=== PATIENT | female | born 1955 | race African-American/Black ===

== ENCOUNTER 2018-05-03 16:58 | Inpatient (IN) | payer MEDICARE, OTHER ==
[~2018-05-03] VITALS: Ht 170.2 cm; Wt 122.5 kg
[2018-05-03 17:59] LABS: BASOPHILS % 0.8 % (0.0-2.0); EOSINOPHILS % 1.2 % (0.0-5.0); HEMATOCRIT. 37.4 % (36.0-48.0); HEMOGLOBIN. 12.5 g/dL (12.0-16.0); LYMPHOCYTES % 20.8 % (20.0-50.0); MEAN CORPUSCULAR HEMOGLOBIN 27.4 pg (28.0-32.0); MEAN CORPUSCULAR VOLUME 82.3 fL (81.0-99.0); MEAN PLATELET VOLUME 9.8 fl (7.4-10.4); MONOCYTES % 5.9 % (2.0-8.0); NEUTROPHILS % 71.3 % (40.0-76.0); PLATELET 238 x1000/uL (130-400); RED BLOOD CELL COUNT 4.55 mill/uL (4.2-5.4); RED CELL DISTRIBUTION WIDTH 13.8 % (11.6-14.6)
[2018-05-03 18:04] LABS: CHLORIDE 104 mEq/L (98-107)
[2018-05-03 18:05] LABS: PARTIAL THROMBOPLASTIN TIME 24.9 sec (23.4-31.0); PROTHROMBIN TIME 10.5 sec (9.1-11.1)
[2018-05-03] MEDS ORDERED: ASPIRIN 325MG TABLET PO ONE (22:45)
[2018-05-03] MEDS ORDERED: NA PHOS,M-B/NA PHOS,DI-BA ENEMA 118ML PR PRN (23:00)
[2018-05-03] MEDS ORDERED: IPRATROPIUM/ALBUTEROL 0.5-3(2.5)MG/3ML NEB INH PRN (23:00)
[2018-05-03] MEDS ORDERED: NITROGLYCERIN 0.4MG TABLET SL SL PRN (23:00)
[2018-05-03] MEDS ORDERED: ZOLPIDEM TARTRATE 5MG TABLET PO PRN (23:00)
[2018-05-03] MEDS ORDERED: CLONIDINE 0.1MG TABLET PO PRN (23:00)
[2018-05-03] MEDS ORDERED: ACETAMINOPHEN 325MG TABLET PO PRN (23:00)
[2018-05-03] MEDS ORDERED: DOCUSATE SODIUM 100MG CAPSULE PO PRN (23:00)
[2018-05-03] MEDS ORDERED: MAGNESIUM/ALUMINUM HYDROXIDE/SIMETHICONE 30ML UDC PO PRN (23:00)
[2018-05-03] MEDS ORDERED: GUAIFENESIN 200MG/10ML SUGAR FREE UDC PO PRN (23:00)
[2018-05-03] MEDS ORDERED: LORAZEPAM 0.5MG TABLET PO PRN (23:00)
[2018-05-03] MEDS ORDERED: DIPHENHYDRAMINE 50MG/ML VIAL IV PRN (23:00)
[2018-05-03] MEDS ORDERED: ONDANSETRON 4MG ODT PO PRN (23:00)
[2018-05-04] VITALS (7 sets, daily range): BP systolic 105–145; BP diastolic 58–91
[2018-05-04 00:13] LABS: CLARITY URINE TURBID (CLEAR); COLOR URINE YELLOW (YELLOW); KETONES URINE NEGATIVE (NEGATIVE); LEUKOCYTE ESTERASE URINE 2+ (NEGATIVE); NITRITE URINE NEGATIVE (NEGATIVE); OCCULT BLOOD URINE 3+ (NEGATIVE); PROTEIN URINE 1+ (NEGATIVE); SPECIFIC GRAVITY URINE 1.012 (1.005-1.030); UROBILINOGEN URINE 0.2 E.U./dL (0.2-1.0)
[2018-05-04 00:36] LABS: *AMPHETAMINES SCREEN URINE NEGATIVE (NEGATIVE); *BARBITURATES SCREEN URINE NEGATIVE (NEGATIVE); *BENZODIAZEPINES SCREEN URINE PRESUMTIVE POSITIVE (NEGATIVE)
[2018-05-04 00:38] LABS: *COCAINE SCREEN URINE NEGATIVE (NEGATIVE); CANNABINOID URINE SCREEN PRESUMTIVE POSITIVE (NEGATIVE); METHADONE URINE SCREEN NEGATIVE (NEGATIVE); OPIATES URINE SCREEN NEGATIVE (NEGATIVE); PHENCYCLIDINE URINE SCREEN NEGATIVE (NEGATIVE)
[2018-05-04] MEDS ORDERED: HYDR-4009 PO (02:18)
[2018-05-04] MEDS ORDERED: AMOX125S8 PO (02:18)
[2018-05-04] MEDS ORDERED: DIAZ10TA4 PO (02:18)
[2018-05-04] MEDS ORDERED: AMLO5TAB88 PO (02:18)
[2018-05-04] MEDS ORDERED: CHOL50003 PO (02:18)
[2018-05-04] MEDS ORDERED: ATOR40TA70 PO (02:18)
[2018-05-04] MEDS ORDERED: ASPI-1159 PO (02:18)
[2018-05-04] MEDS ORDERED: FISH1CAP65 PO (02:18)
[2018-05-04] MEDS ORDERED: LORA10TA7 PO (02:18)
[2018-05-04 07:25] LABS: CREATINE KINASE 39 IU/L (26-192)
[2018-05-04 07:27] LABS: CREATINE KINASE MB FRACTION < 1.0 ng/mL (0.5-3.6)
[2018-05-04] MEDS: ASPIRIN 325MG EC TABLET PO SCH (09:05)
[2018-05-04] MEDS: FAMOTIDINE 20MG TABLET PO SCH ×2 (09:05→20:25)
[2018-05-04] MEDS: ENOXAPARIN 30MG/0.3ML SYR SUBCUT SCH ×2 (09:06→20:25)
[2018-05-04] MEDS: TRAMADOL 50MG TABLET PO PRN ×2 (11:14→20:24)
[2018-05-04] MEDS ORDERED: BUTALBITAL/ACETAMINOPHEN/CAFFEINE 50/325/40MG TABLET PO PRN (12:00)
[2018-05-04] MEDS ORDERED: REGADENOSON 0.4 MG/5 ML IV ONE (12:45)
[2018-05-04] MEDS: AMLODIPINE 2.5MG TABLET PO SCH ×2 (14:09→23:30)
[2018-05-04] MEDS ORDERED: POTASSIUM CHLORIDE 20MEQ TABLET SR PO NR (15:00)
[2018-05-04] MEDS: CEFTRIAXONE 1 G PREMIX 50 ML IV SCH (15:40)
[2018-05-04 17:25] LABS: CREATINE KINASE 37 IU/L (26-192)
[2018-05-04 17:26] LABS: CREATINE KINASE MB FRACTION < 1.0 ng/mL (0.5-3.6)
[2018-05-04] MEDS: ATORVASTATIN CALCIUM 20MG TABLET PO SCH (20:27)
[2018-05-04] MEDS: KETOROLAC 15MG/ML VIAL IV PRN (22:57)
[2018-05-05] VITALS: BP 128/71
[2018-05-05 04:00] VITALS: BP 140/90
[2018-05-05] MEDS: KETOROLAC 15MG/ML VIAL IV PRN (06:46)
[2018-05-05 06:58] LABS: BASOPHILS % 0.5 % (0.0-2.0); HEMATOCRIT. 31.1 % (36.0-48.0); HEMOGLOBIN. 10.5 g/dL (12.0-16.0); MEAN CORPUSCULAR HEMOGLOBIN 27.7 pg (28.0-32.0); MEAN CORPUSCULAR VOLUME 82.1 fL (81.0-99.0); MEAN PLATELET VOLUME 9.5 fl (7.4-10.4); MONOCYTES % 5.9 % (2.0-8.0); NEUTROPHILS % 62.6 % (40.0-76.0); PLATELET 212 x1000/uL (130-400); RED BLOOD CELL COUNT 3.78 mill/uL (4.2-5.4); RED CELL DISTRIBUTION WIDTH 13.7 % (11.6-14.6)
[2018-05-05 08:00] VITALS: BP 135/83
[2018-05-05 08:03] LABS: CHLORIDE 105 mEq/L (98-107)
[2018-05-05] MEDS: FAMOTIDINE 20MG TABLET PO SCH ×2 (08:34→21:11)
[2018-05-05] MEDS: ASPIRIN 325MG EC TABLET PO SCH (08:34)
[2018-05-05] MEDS: AMLODIPINE 2.5MG TABLET PO SCH ×2 (08:34→21:11)
[2018-05-05] MEDS: ENOXAPARIN 30MG/0.3ML SYR SUBCUT SCH ×2 (08:53→21:11)
[2018-05-05] MEDS ORDERED: PROCHLORPERAZINE 10MG/2ML VIAL IV PRN (10:15)
[2018-05-05] MEDS ORDERED: REGADENOSON 0.4 MG/5 ML IV ONE (10:38)
[2018-05-05 12:00] VITALS: BP 108/75
[2018-05-05] MEDS: CEFTRIAXONE 1 G PREMIX 50 ML IV SCH (15:28)
[2018-05-05 16:00] VITALS: BP 121/66
[2018-05-05 20:00] VITALS: BP 130/66
[2018-05-05] MEDS: ATORVASTATIN CALCIUM 20MG TABLET PO SCH (21:14)
[2018-05-06] VITALS: BP 111/55
[2018-05-06 04:00] VITALS: BP 120/88
[2018-05-06 08:00] VITALS: BP 120/59
[2018-05-06] MEDS: ASPIRIN 325MG EC TABLET PO SCH (08:56)
[2018-05-06] MEDS: FAMOTIDINE 20MG TABLET PO SCH (08:56)
[2018-05-06] MEDS: AMLODIPINE 2.5MG TABLET PO SCH (08:56)
[2018-05-06] MEDS: ENOXAPARIN 30MG/0.3ML SYR SUBCUT SCH (08:57)
[2018-05-06 12:00] VITALS: BP 119/62
[2018-05-06 14:47] VITALS: BP 119/62
[2018-05-06] MEDS: CEFTRIAXONE 1 G PREMIX 50 ML IV SCH (15:00)
== END 2018-05-06 16:34 | disposition home or self-care (01) | DRG 690 ==
LOC: ER 16:58 → 6WST 22:52 → SUPCPDRO 22:59 → ENRESERV 05-04 00:10
PROVIDERS: ADMIT Internal Medicine; ATTEND Internal Medicine
DX: N39.0 Urinary tract infection, site not specified (principal); G43.909 Migraine, unspecified, not intractable, without status migrainosus; R07.89 Other chest pain; I10 Essential (primary) hypertension; E78.00 Pure hypercholesterolemia, unspecified; F12.90 Cannabis use, unspecified, uncomplicated; Z96.659 Presence of unspecified artificial knee joint; Z90.49 Acquired absence of other specified parts of digestive tract
CPT/HCPCS: 36415; 71045; 78452; 80053; 80061; 80305; 81003; 82550; 82553; 83036; 83735; 83880; 84484; 85025; 85379; 85610; 85730; 87077; 87086; 87186; 93005; 93017; 93306; 93970; 99285; A9500; J0696; J0780; J1650; J1885; J2785; J7040

== ENCOUNTER 2019-01-06 18:30 | Emergency (ER) | payer MEDICARE, OTHER ==
[~2019-01-06] VITALS: Ht 170.2 cm; Wt 118.0 kg
[~2019-01-06 18:30] MED LIST: AMLO5TAB88 PO; AMOX125S8 PO; ASPI-1159 PO; ATOR40TA70 PO; CHOL50003 PO; DIAZ10TA4 PO; FISH1CAP65 PO; HYDR-4009 PO; LORA10TA7 PO
[2019-01-06] MEDS ORDERED: HYDROCODONE/ACETAMINOPHEN 5/325MG TABLET PO ONE (21:00)
[2019-01-06 21:30] VITALS: BP 168/92
[2019-01-06] MEDS ORDERED: KETOROLAC 60MG/2ML VIAL IM ONE (21:30)
== END 2019-01-06 22:30 | disposition home or self-care (01) ==
LOC: ER 18:30
DX: M25.511 Pain in right shoulder (principal); I10 Essential (primary) hypertension; F12.10 Cannabis abuse, uncomplicated; Z90.49 Acquired absence of other specified parts of digestive tract; Z96.659 Presence of unspecified artificial knee joint; Z98.890 Other specified postprocedural states; Z79.899 Other long term (current) drug therapy; Z88.5 Allergy status to narcotic agent; Z91.040 Latex allergy status; Z79.82 Long term (current) use of aspirin
CPT/HCPCS: 73030; 96372; 99283; J1885; A4565

== ENCOUNTER 2019-07-19 13:36 | Emergency (ER) | payer MEDICARE, OTHER ==
[~2019-07-19] VITALS: Ht 172.7 cm; Wt 100.0 kg
[~2019-07-19 13:36] MED LIST changes: +AMOX125S12 PO; -AMOX125S8 PO; -ASPI-1159 PO; +ASPI-1393 PO
[2019-07-19 13:47] VITALS: BP 144/81
[2019-07-19] MEDS ORDERED: KETOROLAC 60MG/2ML VIAL IM ONE (14:45)
== END 2019-07-19 15:17 | disposition home or self-care (01) ==
LOC: ER 13:36
DX: M25.572 Pain in left ankle and joints of left foot (principal); M54.30 Sciatica, unspecified side; I10 Essential (primary) hypertension; Z88.6 Allergy status to analgesic agent; Z90.49 Acquired absence of other specified parts of digestive tract; Z96.659 Presence of unspecified artificial knee joint
CPT/HCPCS: 73610; 96372; 99283; J1885

== ENCOUNTER 2019-09-02 01:00 | Emergency (ER) | payer BC, OTHER ==
[~2019-09-02] VITALS: Ht 170.2 cm; Wt 119.0 kg
[~2019-09-02 01:00] MED LIST changes: -ASPI-1393 PO; +ASPI-1497 PO
[2019-09-02] MEDS ORDERED: TRAMADOL 50MG TABLET PO ONE (07:00)
[2019-09-02] MEDS ORDERED: ONDANSETRON 4MG ODT PO ONE (09:00)
[2019-09-02] MEDS ORDERED: ALBUTEROL (0.5%) 2.5MG/0.5ML NEB HHN ONE (09:00)
[2019-09-02] MEDS ORDERED: ALBUTEROL (0.083%) 2.5MG/3ML NEB ONE (09:03)
[2019-09-02 13:02] VITALS: BP 130/70
== END 2019-09-02 13:04 | disposition home or self-care (01) ==
LOC: ER 01:00
DX: B34.9 Viral infection, unspecified (principal); J98.01 Acute bronchospasm; I10 Essential (primary) hypertension; F12.10 Cannabis abuse, uncomplicated; Z88.5 Allergy status to narcotic agent; Z91.040 Latex allergy status; Z96.659 Presence of unspecified artificial knee joint; Z98.890 Other specified postprocedural states
CPT/HCPCS: 36415; 71046; 84484; 87804; 93005; 94640; 99284; J7611

== ENCOUNTER 2019-11-07 17:17 | Emergency (ER) | payer BC, OTHER ==
[~2019-11-07] VITALS: Ht 170.2 cm; Wt 119.0 kg
[2019-11-07] MEDS ORDERED: HYDROXYZINE 25MG TABLET PO ONE (18:30)
[2019-11-07 18:43] VITALS: BP 154/103
[2019-11-07] MEDS ORDERED: KETOROLAC 60MG/2ML VIAL IM ONE (18:45)
== END 2019-11-07 18:57 | disposition home or self-care (01) ==
LOC: ER 17:17
DX: L30.4 Erythema intertrigo (principal); B02.9 Zoster without complications; F12.10 Cannabis abuse, uncomplicated; I10 Essential (primary) hypertension; Z96.659 Presence of unspecified artificial knee joint; Z98.890 Other specified postprocedural states; Z88.6 Allergy status to analgesic agent; Z88.5 Allergy status to narcotic agent; Z91.040 Latex allergy status; Z79.899 Other long term (current) drug therapy
CPT/HCPCS: 96372; 99283; J1885